=== PATIENT | female | born 1950 | race Two or more races ===

== ENCOUNTER 2023-10-22 21:47 | Emergency (ER) | payer MEDICARE, OTHER ==
[~2023-10-22] VITALS: Ht 160 cm; Wt 72.6 kg
[2023-10-22] MEDS ORDERED: IBUPROFEN 600 MG TABLET ONE (22:48)
[2023-10-22] MEDS: IBUPROFEN 600 MG TABLET PO ONE (22:49)
[2023-10-22 23:40] VITALS: BP 145/84; TEMP 98.6; O2SAT 98
== END 2023-10-22 23:40 | disposition home or self-care (01) ==
LOC: ER 21:57
DX: M54.9 Dorsalgia, unspecified (principal); I10 Essential (primary) hypertension; Z88.0 Allergy status to penicillin
CPT/HCPCS: 72131-TC